=== PATIENT | female | born 1950 | race Caucasian/White ===

== ENCOUNTER → 2018-02-18 | Outpatient (CLI) | payer OTHER | LOC: CIMAGING 16:15 | PROVIDERS: ATTEND Family Medicine | DX: R91.8 Other nonspecific abnormal finding of lung field (principal) | CPT/HCPCS: 71046-PO ==

== ENCOUNTER → 2018-02-24 | Day surgery (SDC) | payer OTHER ==
[~2018-02-24] MED LIST: FLUMAZENIL 0.5 MG/5 ML MDV IVP PRN; MEPERIDINE 25 MG/ML SYR IVP PRN; MIDAZOLAM 2 MG/2 ML VIAL IVP PRN; NALOXONE HCL 0.4 MG/ML INJ IVP PRN; NS 1,000 ML IV SCH; fentaNYL 100 MCG/2 ML INJ IVP PRN
--- NOTE | 2018-02-24 14:10 | PDGENHP ---
History & Physical Chief Complaint: pulmonary masses of unknown origin History of Present Illness: pulmonary masses of unknown origin Pertinent Past, Social, Family History: HTN, DM, ulcerative colitis Relevant Physical Exam: rrr Cardiorespiratory Assessment: Diminished breath sounds. No wheeze or rhonchi
--- NOTE | 2018-02-24 14:10 | PDPROPOC ---
Sedation Plan of Care Sedation Plan of Care: vital signs stable, mental status noted, patient educated of risks, benefits, alternatives, patient can tolerate sedation ASA Classification: ASA 2 Planned drugs: fentanyl, midazolam Mallampati Score: Class 3 Mallampati Reference Image: Patient passed 3-3-2 rule?: Yes
--- NOTE | 2018-02-24 15:15 | PDHOMEO2F ---
Home Oxygen Face to Face Home Orders: I certify that a physician or a nurse practitioner or physician's certified ophthalmic surgical assistant has had a [id number] encounter with this patient on the date of this order due to the diagnosis listed, which relates to the primary reason the patient requires home oxygen. Alternative treatments have been tried, or considered, and deemed ineffective. It is anticipated that supplemental oxygen will result in improvement with treatment. Home oxygen qualifying diagnosis: metastatic carcinom a SpO2 on room air (%): 85 Frequency of home oxygen needed: continuous Home oxygen liters per minute: 3 Home oxygen delivery device: nasal cannula Concentrator: Yes E-tanks for mobility and back up: Yes If ordering portable O2, is the patient mobile in the home?: Yes I certify that, based on these findings, the home oxygen is medically necessary for this patient for the following length of time. Length of time home oxygen needed: 99 years
[2018-02-24 17:59] VITALS: BP 117/74
== END | disposition home or self-care (01) ==
LOC: FIMAGING 10:16
PROVIDERS: ATTEND Internal Medicine Hematology & Oncology
PROC: 0HB5XZX Excision of Chest Skin, External Approach, Diagnostic (ICD-10-PCS; 2018-02-24)
PROC: 0BBC3ZX Excision of Right Upper Lung Lobe, Percutaneous Approach, Diagnostic (ICD-10-PCS; principal; 2018-02-24 13:52)
DX: C34.11 Malignant neoplasm of upper lobe, right bronchus or lung (principal); C49.3 Malignant neoplasm of connective and soft tissue of thorax; I10 Essential (primary) hypertension; E11.9 Type 2 diabetes mellitus without complications; K51.90 Ulcerative colitis, unspecified, without complications
CPT/HCPCS: J2250; J3010

== ENCOUNTER 2018-03-14 05:30 | Day surgery (SDC) | payer OTHER ==
[2018-03-14] MEDS ORDERED: ceFAZolin 2 GM/DEXTROSE 100 ML IV ONE (06:05)
[2018-03-14] MEDS ORDERED: LR 1,000 ML IV ONE (06:06)
[2018-03-14] MEDS ORDERED: BUPIVACAINE 0.5% 30 ML SDV ONE (06:43)
--- NOTE | 2018-03-14 07:01 | PDANEPAE ---
ANE Past Medical History - Cardiovascular History Hx Hypertension: Yes Hx Arrhythmias: No Hx Chest Pain: No Hx Coronary Artery / Peripheral Vascular Disease: No Hx CHF / Valvular Disease: No Hx Palpitations: No Cardiovascular History Comment: heart murmur, per Dr. Stokse w/ONC - Pulmonary History Hx COPD: No Hx Asthma/Reactive Airway Disease: No Hx Recent Upper Respiratory Infection: No Hx Oxygen in Use at Home: Yes O2 in Use at Home (L/minute): 3L continuously Hx Sleep Apnea: No Sleep Apnea Screening Result - Last Documented: Positive Pulmonary History Comment: ZAID triggers only - Neurologic History Hx Cerebrovascular Accident: No Hx Seizures: No Hx Dementia: No - Endocrine History Hx Diabetes: Yes - Renal History Hx Renal Disorders: No - Liver History Hx Hepatic Disorders: No - Neurological & Psychiatric Hx Hx Neurological and Psychiatric Disorders: No - Cancer History Hx Cancer: No Cancer History Comment: Bilat lung nodules. Uterine sarcoma - Congenital Disorder History Hx Congenital Disorders: No - GI History Hx Gastrointestinal Disorders: Yes Gastrointestinal History Comment: ulcerative colitis - Other Health History Other Health History: degenerative arthritis. sees chiropractor for back alignment. glasses for reading. dentures, full set - Chronic Pain History Chronic Pain: No - Surgical History Prior Surgeries: d&c 1969's. tonsillectomy ANE Review of Systems Review of Systems: - Exercise capacity METS (RN): 3 METS ANE Patient History - Allergies Allergies/Adverse Reactions: No Known Allergies Allergy (Unverified 02/21/18 15:10) - Home Medications Home Medications: Atenolol 02/21/18 [Last Taken 03/13/18] Glipizide 02/21/18 [Last Taken 03/10/18] Lisinopril/Hctz 20/12.5MG 02/21/18 [Last Taken 03/12/18] Metformin 1000 mg 02/21/18 [Last Taken 03/13/18] Multivitamins 02/21/18 [Last Taken 03/13/18] Allen 3 500 Softgel 02/21/18 [Last Taken 03/13/18] Viactiv Soft Chew 02/21/18 [Last Taken 03/13/18] - NPO status NPO Since - Liquids (Date): 03/14/18 NPO Since - Liquids (Time): 04:15 NPO Since - Solids (Date): 03/13/18 NPO Since - Solids (Time): 20:30 - Smoking Hx Smoking Status: Never smoked - Family Anes Hx Family Hx Anesthesia Complications: none ANE Labs/Vital Signs - Vital Signs Blood Pressure: 133/69 Heart Rate: 89 Respiratory Rate: 18 O2 Sat (%): 96 Height: 162.56 cm Weight: 113.398 kg ANE Physical Exam - Airway Mallampati Score: Class 2 Mouth exam: dentures - ASA Status ASA Status: III ANE Anesthesia Plan Anesthesia Plan: GA w LMA
[2018-03-14] MEDS ORDERED: PROPOFOL 200 MG/20 ML VIAL ONE (07:07)
[2018-03-14] MEDS ORDERED: MIDAZOLAM 2 MG/2 ML VIAL ONE (07:07)
[2018-03-14] MEDS ORDERED: fentaNYL 100 MCG/2 ML INJ ONE (07:07)
[2018-03-14] MEDS ORDERED: METOCLOPRAMIDE 10 MG/2 ML VIAL ONE (07:08)
[2018-03-14] MEDS ORDERED: ONDANSETRON 4 MG/2 ML VIAL ONE (07:08)
[2018-03-14] MEDS ORDERED: LIDOCAINE 2% JELLY 5 ML TUBE ONE (07:08)
--- NOTE | 2018-03-14 07:08 | PDHPUP ---
History & Physical Update H&P update statement: This history and physical update is based on an assessment of the patient which was completed after admission or registration (within 24 hours), but prior to the surgery/procedure. H&P update: H&P reviewed & patient examined, no change in patient's condition since H&P completed
--- NOTE | 2018-03-14 08:04 | POSTOPPROG ---
Post Op Note Date of Operation: 03/14/18 Surgeon: Shiar Nicolas Anesthesiologist: alfie Anesthesia: GET(General Endotracheal) Pre-op Diagnosis: uterine sarcoma Post-op Diagnosis: same Indication: 68 yo with uterine sarcoma Procedure: R US IJ port Findings: tip SVC RA junction Inf/Abcess present in the surg proc area at time of surgery?: No EBL: Minimal Specimen(s): none
[2018-03-14] MEDS ORDERED: fentaNYL 100 MCG/2 ML INJ IVP PRN (08:09)
[2018-03-14] MEDS ORDERED: NALOXONE HCL 0.4 MG/ML INJ IVP PRN (08:09)
[2018-03-14] MEDS ORDERED: LR 500 ML IV PRN (08:09)
--- NOTE | 2018-03-14 08:10 | POSTANESTH ---
Post Anesthetic Evaluation Cardiovascular Status: Similar to Pre-Op Cond Respiratory Status: Similar to Pre-op Cond. Level of Consciousness/Mental Status: Can Participate in Eval Pain Control: Adequate, Prn Tx Ordered Nausea/Vomiting Control: Adequate, Prn Tx Ordered Complications Possibly Related to Anesthesia: None Noted
--- NOTE | 2018-03-14 08:21 | GOP ---
DATE OF OPERATION: 03/14/2018 SURGEON: Shira Nicolas MD ANESTHESIA: General. ANESTHESIOLOGIST: Tim Wayne MD. PREOPERATIVE DIAGNOSIS: Uterine sarcoma. POSTOPERATIVE DIAGNOSIS: Uterine sarcoma. PROCEDURE PERFORMED: Right ultrasound-guided internal jugular PowerPort placement. FINDINGS: Tip at the SVC-RA junction. SPECIMENS: None. ESTIMATED BLOOD LOSS: 5 cc. INDICATIONS: The patient is a 68-year-old woman with uterine sarcoma. She requires a port for chemo therapy. DESCRIPTION OF PROCEDURE: Patient was brought into the operating room, placed supine on the table, a nd general anesthesia was administered. Her bilateral neck and chest were prepped and draped in the usual sterile fashion. I infiltrated all sites with 0.5% Marcaine prior to making incision. I acces sed her right internal jugular vein which was compressible by ultrasound with a large-bore needle wit h dark return of blood flow on the first attempt. I threaded a wire through the needle. Initially w as crossing through the innominate and then under fluoroscopy, I was able to direct it to the inferio r vena cava. I then created a pocket to accommodate the port in the right chest. I tunneled the por t up to the insertion site. Using the Seldinger technique, I placed a dilator and sheath over the wi re. I removed the wire and dilator. I threaded the catheter through the sheath and peeled away the sheath. I performed manipulation of the neck to create a soft gentle curve of the catheter. Placeme nt was confirmed at the SVC-RA junction. The port withdrew blood easily and was flushed with heparin . The pocket was closed with 3-0 Vicryl followed by 4-0 Monocryl. Dermabond applied. She was awake brina in the operating room, extubated, transferred to PACU in stable condition. A chest x-ray was pen ding. /[id number]/MODL
[2018-03-14 09:47] VITALS: BP 123/69
== END 2018-03-14 10:00 | disposition home or self-care (01) ==
LOC: FSGY 05:30
PROVIDERS: ATTEND Surgery
PROC: 0JH60XZ Insertion of Tunneled Vascular Access Device into Chest Subcutaneous Tissue and Fascia, Open Approach (ICD-10-PCS; principal; 2018-03-14 07:15)
PROC: 02HV33Z Insertion of Infusion Device into Superior Vena Cava, Percutaneous Approach (ICD-10-PCS; principal; 2018-03-14 07:15)
DX: Z45.2 Encounter for adjustment and management of vascular access device (principal); C55 Malignant neoplasm of uterus, part unspecified; I10 Essential (primary) hypertension; G47.33 Obstructive sleep apnea (adult) (pediatric); E11.9 Type 2 diabetes mellitus without complications
CPT/HCPCS: C1788; J0690; J1642; J2250; J2405; J2704; J2765; J3010

== ENCOUNTER → 2018-06-18 | Outpatient (CLI) | payer OTHER | END | disposition home or self-care (01) | LOC: FIMAGING 09:59 | PROVIDERS: ATTEND Specialist | DX: N20.1 Calculus of ureter (principal) ==

== ENCOUNTER 2018-06-20 15:11 | Inpatient (IN) | payer OTHER ==
[2018-06-20] MEDS ORDERED: ONDANSETRON 4 MG/2 ML VIAL IVP PRN (15:21)
[2018-06-20] MEDS ORDERED: HYDROCODONE/APAP 5/325 TAB PO PRN (15:21)
[2018-06-20] MEDS ORDERED: ONDANSETRON DISINTEGRATING 4 MG TAB PO PRN (15:21)
[2018-06-20] MEDS ORDERED: ACETAMINOPHEN 325 MG TAB PO PRN (15:21)
[2018-06-20] MEDS ORDERED: LORazepam 0.5 MG TAB PO PRN (15:21)
[2018-06-20] MEDS ORDERED: NS W/ 20 KCl/L 1,000 ML IV SCH (15:30)
--- NOTE | 2018-06-20 16:16 | PDCONSULT ---
Lockstitch Sleeve Maker Note: Hematology/Oncology Consult Note Requesting provider: Dr Hillman Outpatient oncologist: Dr. 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 She is well known to our practice and is followed by my partner Dr. Beau Stokes. She initially presented in January with bilateral pulmonary nodules. She had a CT chest and pelvis that demonstrated large uterine mass. She had biopsy along the demonstrated poorly differentiated sarcoma. She was initiated on doxorubicin and olara on 2017. She has received a total of 5 cycles. Her last dose was on 06/11/2018. Over the course the last 2 weeks she has had significant dyspnea on exertion. She has also had decreased p.o. Intake alongside profound diarrhea. She denies any blood in the stool. She did have a workup in clinic including stool studies that were negative. She has received IV hydration daily for the last 3 days within our clinic. Today she presented with significant neutropenia with a white blood cell count 0.27. She did receive growth factor in the clinic. She was admitted directly from clinic for further evaluation of diarrhea and shortness of breath. Past medical history: Metastatic sarcoma as per above Diabetes mellitus Hypertension Inflammatory bowel disease Osteoarthritis Family history: Mother had congestive heart failure. Father had diabetes. 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 She denies any alcohol or tobacco. Allergies: No known drug allergies Medications: Reviewed outpatient medications Review of systems: 12 point review of system was obtained is otherwise negative Physical examination: Vitals reviewed General: Pleasant, conversant, NAD, mild respiratory distress HEENT: Dry mucus membrane, crusted lesion on lips, OP otherwise clear, EOMI CV: Tachycardia, 2/6 systolic murmur appreciated throughout Pulm: Mild respiratory distress noted Abdomen: soft, bs +, slight tenderness in the RUQ Ext: 1+ LE edema, no cyanosis or clubbing Skin: No other skin lesions Psych: Appropriate affect Neuro: Moving all ext Labs: Pending on admission. A/P: This is a 68-year-old female with history of metastatic sarcoma thought to be of uterine primary currently receiving doxorubicin and olaratumab admitted for diarrhea, weakness and neutropenia. 1. Diarrhea, nausea, vomiting: She does have history of inflammatory bowel disease. Her stool studies done in clinic were negative. She denies any blood in her stool. She could certainly have diarrhea secondary to the Olaratumab as well. I would recommend deferring any endoscopy internal her neutropenia resolved. I recommend continued IV fluid for time being. I would also initiate Zofran scheduled. 2. Neutropenia: She denies any fevers. She did receive growth factor in the clinic which we will continue to expedite her hospital discharge. If she develops a fever, I would recommend starting broad spectrum antibiotics with Vanc/Cefepime. 3. Thrombocytopenia: This is secondary to chemotherapy. 4. Dyspnea: She reports baseline oxygen use but in the last 2 weeks her dyspnea has worsened. This could be secondary to anemia as well as pulmonary metastasis. Although, it does appear her disease is responding to treatment. I recommend obtaining had two view chest x-ray at the orders of which I have placed. 5. Metastatic uterine sarcoma: Her current treatment plan will be on hold until she sees Dr. Stokes in the clinic.
[2018-06-20] MEDS ORDERED: NS 1,000 ML IV ONE (16:50)
[2018-06-20] MEDS ORDERED: POTASSIUM CL 10 MEQ TAB PO SCH (17:00)
[2018-06-20] MEDS ORDERED: NS 2,000 ML IV ONE (17:06)
[2018-06-20 17:52] LABS: INR 1.25 (0.83-1.16); PROTIME(PATIENT) 15.9 SEC (12.0-15.0)
[2018-06-20 18:00] LABS: PLATELET COUNT 39 10^3/uL (150-400)
[2018-06-20] MEDS: VANCOMYCIN 1.5 GM in NS 250 ML IV ONE ×2 (18:12→18:56)
[2018-06-20] MEDS: CEFEPIME HCL 2 GM in NS 100 ML IV SCH (18:17)
[2018-06-20] MEDS ORDERED: D50W 25 GM/50 ML VIAL IVP PRN (20:58)
[2018-06-20] MEDS: POTASSIUM Cl (KCl) 100 ML IV SCH (21:18)
--- NOTE | 2018-06-20 21:47 | GHP ---
DATE OF ADMISSION: 06/20/2018 CHIEF COMPLAINT: Nonbloody diarrhea. HISTORY OF PRESENT ILLNESS: Ms. Anaya is a pleasant, 68-year-old female with a recent diagnosis of m etastatic uterine sarcoma who has been undergoing chemotherapy. Due to electrolyte abnormalities and dehydration related to diarrhea, she has been receiving IV fluids in the outpatient setting over the past few days, but unfortunately has continued to decline. She had a chest x-ray performed in [facility] and a STAT Team was called secondary to brief loss of consciousness. Her blood pressure was linda sured at 82/46. She states she has been having loose stools, which have been nonbloody in nature for the past several days. She does have a history of inflammatory bowel disease, but again, no bloody stools noted. Upon arrival back up on the floor, she developed a fever to 101.5. Blood cultures wer e taken and empiric antibiotic started. PAST MEDICAL HISTORY: Metastatic uterine sarcoma diagnosed in 2018, hypertension, chronic hypoxic re spiratory failure on 2 L of oxygen chronically, diabetes mellitus type 2, inflammatory bowel disease. PAST SURGICAL HISTORY: Recent CT-guided lung biopsy. MEDICATIONS: Glipizide 10 mg daily; metformin 1000 mg twice a day. ALLERGIES: No known drug allergies. FAMILY HISTORY: Father with a history of diabetes mellitus type 2. Mother with history of congestiv e heart failure. SOCIAL HISTORY: Patient is a nonsmoker. She is currently . Her power of claim attorney would be h er , who is present at the bedside today. CODE STATUS: Reviewed, and she is a full code status. REVIEW OF SYSTEMS: CONSTITUTIONAL: Positive for chills. ENT: No complaints of any nasal congestio n or localizing sinus pain. CARDIOVASCULAR: No complaints of any chest pain, palpitations, or synco pal episodes. RESPIRATORY: No complaints of productive cough or shortness of breath. GI: Positive for nausea and poor appetite with nonbloody loose stools. No localizing abdominal pain. : No re ports of any difficulty with urination or burning with urination or cloudy urine. NEUROLOGIC: No co mplaints of any headaches or focal weakness. HEMATOLOGIC: No history of any deep vein thrombosis or pulmonary embolism. PSYCHIATRIC: No history of anxiety or depression. ENDOCRINE: No polyuria or heat intolerance. SKIN: No new skin rashes noted. MUSCULOSKELETAL: No focal joint pains. PHYSICAL EXAM: VITAL SIGNS: Temperature 101.5, blood pressure 82/46, heart rate ranging between 105 and 120, respiratory rate of 18. GENERAL: The patient was having rigors at the time of the evaluat ion, but was awake, alert, and conversant. HEENT: Extraocular movements appear intact. No scleral icterus noted. NECK: Supple. No thyroid enlargement appreciated. CHEST: Clear to auscultation wi th normal respiratory effort. HEART: Regular rate and rhythm. No murmurs appreciated. ABDOMEN: S lightly hyperactive bowel sounds. Nontender, nondistended. : No Franklin catheter in place. EXTREM ITIES: No significant pitting edema. NEUROLOGIC: Cranial nerves 2-12 appear grossly intact with 5/ 5 strength in the extremities. LABS: White blood cell count 0.27, hemoglobin 7.6, platelets 26. Sodium 126, potassium 3.0, chlorid e 94, bicarb 24, BUN 5, creatinine 0.5, glucose of 181. Lactic acid 2.4. AST 19, ALT 13, alkaline p hosphatase 145, bilirubin is 0.8. IMAGING: Chest x-ray did not show any acute process. ASSESSMENT AND PLAN: 1. Septic shock: She does meet criteria for systemic inflammatory response syndrome based upon tach ycardia, hypotension, and fever. Thus far, her blood pressures have been responsive to IV fluids. S he has received a total of 3 L bolus of normal saline and will continue with maintenance IV fluids. 2. Neutropenic fever: Blood cultures have been obtained. Empiric coverage has been started with ce fepime and vancomycin. We will also obtain a urinalysis. 3. Hyponatremia: Likely related to hypovolemia. Trend with IV fluids. 4. Hypokalemia: This did improve upon recheck to 4.2, so I have taken out the potassium in her main tenance IV. 5. Pancytopenia with neutropenia: Growth factor has been given in her oncologist's office. This is all secondary to recent chemotherapy. 6. Metastatic uterine sarcoma: The patient has ongoing chemotherapy. 7. Hypertension: Hold antihypertensives at this time in light of hypotension. 8. Chronic hypoxic respiratory failure: The patient states she is on a baseline of 2 L, which was s tarted earlier this year. 9. Diabetes mellitus type 2: We will treat with sliding scale for now. 10. Inflammatory bowel disease. The patient states this has been in remission for many years. 11. Deep venous thrombosis prophylaxis: Will hold heparin or Lovenox for now. DISPOSITION: Admit under inpatient status. /[id number]/MODL
[2018-06-20] MEDS ORDERED: CEFEPIME HCL 2 GM in NS 100 ML IV SCH (22:00)
[2018-06-20] MEDS: NS 1,000 ML IV SCH (22:01)
[2018-06-20] MEDS ORDERED: NS 500 ML IV ONE (23:23)
[2018-06-21] MEDS: CEFEPIME HCL 2 GM in NS 100 ML IV SCH ×4 (02:17→22:58)
[2018-06-21] MEDS ORDERED: NS 500 ML IV ONE ×2 (03:34→06:05)
[2018-06-21] MEDS ORDERED: POTASSIUM CL 20 MEQ TAB PO ONE (05:02)
[2018-06-21 05:08] LABS: PLATELET COUNT 17 10^3/uL (150-400)
[2018-06-21] MEDS: POTASSIUM Cl (KCl) 100 ML IV SCH ×2 (05:16→06:41)
--- NOTE | 2018-06-21 06:41 | PDMN ---
Medical Necessity Medical necessity: Change to inpt as of 06/20/18 @ 00:38. Pt meets inpt criteria per MD order and MCG M-160, Sepsis and Other Febrile Illness, without Focal Infection, A-3 days. 68 y/o w/recent diagnosis of uterine sarcoma undergoing chemo and due to diarrhea/dehydration/electrolyte abnormalities has been receiving IVF in outpt setting for past couple days but has continued to decline, admitted now w/septic shock meeting SIRS as evidenced by tachycardia, hypotension, VBG lactic acid of 2.9, and fever, significant neutropenia w/WBC ct of 0.20, signif electrolyte findings this AM w/K 2.4, Na 128, Mg 1.0, Plt ct of 17. Est LOS>2MN for ongoing management of above.
[2018-06-21] MEDS ORDERED: MAGNESIUM SULF 2 GM/WATER 50 ML IV ONE (07:08)
[2018-06-21] MEDS: INSULIN REGULAR HUMAN 100 UNIT/ML UNIT SC SCH ×3 (08:53→19:09)
[2018-06-21] MEDS ORDERED: ENOXAPARIN 40 MG/0.4 ML SYR SC SCH (09:00)
[2018-06-21] MEDS ORDERED: FILGRASTIM-SNDZ 480 MCG/0.8 ML SYR SC SCH (14:00)
[2018-06-21] MEDS ORDERED: IOPAMIDOL (ISOVUE-300) 100 ML BTL ONE (15:14)
--- NOTE | 2018-06-21 15:23 | SOAPPROG ---
SOAP Progress Note Assessment/Plan: E&M for Sarcoma * Profound neutropenia with associated diarrhea and nausea and vomiting: She is at high risk of developing an infection. She is on a broad-spectrum antibiotics primarily cefepime and she was also started on Zarxio. Her cultures remain negative. Vancomycin was stopped. With her history of ulcerative colitis and a low white count, I agree with getting a CT scan to make sure she does not have any evidence of typhlitis but clinically she does not appear to. * Severe pancytopenia due to chemotherapy: Agree with transfusing a unit of blood today but there is no need for a platelet transfusion today. She still severely neutropenic so we will continue G-CSF. * Metastatic uterine sarcoma: She is day 11 of cycle 5 of doxorubicin plus Olaratumab. Dr. Stokes was considering not going forward with any further doxorubicin after this cycle because she was at or near her lifetime recommended dose. * Dyspnea: The chest x-ray shows improvement of the metastases and no acute changes. This may be due to the anemia. Subjective: She is still fatigued but not having any new complaints. Her mouth is sore. The diarrhea is better and she is scheduled for a CT scan today. She denies significant abdominal pain. Objective: Vital Signs Temp Pulse Resp BP Pulse Ox 36.4 C 85 12 94/50 L 96 06/21/18 12:04 06/21/18 12:04 06/21/18 12:04 06/21/18 12:04 06/21/18 12:04 Laboratory Results 06/21/18 04:15 06/21/18 11:49 06/20/18 06/21/18 06/22/18 05:59 05:59 05:59 Intake Total 3100 1500 Output Total 75 Balance 3025 1500 PT 15.9 SEC (12.0-15.0) H 06/20/18 17:23 INR 1.25 (0.83-1.16) H 06/20/18 17:23 Laboratory Tests 06/20/18 06/21/18 17:23 04:15 WBC 0.33 L* 0.20 L* Hgb 8.3 L 6.1 L Plt Count 39 L 17 L* Absolute Seg Neuts 0.03 L 0.03 L Physical Exam - Physical Exam General Appearance: no apparent distress EENT: other (Some minimal mucositis but no thrush.) Respiratory: lungs clear Cardiac/Chest: regular rate, rhythm, edema, systolic murmur Abdomen: non-tender, soft, distended ICD10 Worksheet Patient Problems: Problems Problem Status Onset Diarrhea Acute Anemia due to chemotherapy Acute Thrombocytopenia due to drugs Acute ~06/20/18 Neutropenia, drug-induced Acute ~06/20/18 Uterine sarcoma Chronic ~02/18/18
[2018-06-21] MEDS ORDERED: LIDOCAINE 2% VISCOUS 15 ML UDCUP PO PRN (15:50)
--- NOTE | 2018-06-21 16:23 | ASMTCMCOM ---
CM Note CM Note Notes: Spoke with RN and reviewed chart. Pt admitted for dehydration, diarrhea, electrolyte imbalance and weakness in the setting of chemotherapy for uterine sarcoma. Pt lives independently in mobile home with and has supportive family. Pt to receive a unit of blood today. OT has been ordered and not yet evaluated. Discharge needs TBD. CM to follow. D/C Plan: TBD Date Signed: 06/21/2018 04:22 PM Electronically Signed By:Ashlyn Marsh
--- NOTE | 2018-06-21 16:36 | HOSPPROG ---
Hospitalist Progress Note Assessment/Plan: Subjective Follow-up on septic shock and neutropenic fever. Patient states that she is still feeling quite fatigued today but not having the chills and rigors as she was yesterday. Overnight her blood pressures have been running low but she appears to be responding to IV fluids at this time. No new complaints or localizing pains or skin rashes. Objective Vital signs as detailed below Exam General-awake alert conversant no acute distress Heart-regular rate and rhythm no murmurs Lungs-Clear to auscultation with normal respiratory effort Abdomen-soft nontender nondistended normal bowel sounds -no Franklin catheter in place Extremities-1+ pitting edema bilateral lower extremities Skin-no concerning skin rashes noted Labs as detailed below Assessment and plan Septic shock-patient has been responsive to IV fluids. If she becomes unresponsive she would may need to be transferred to step-down unit or ICU for vasopressors. Neutropenic fever-continue empiric antibiotic coverage with cefepime and vancomycin. Further recommendations per Infectious Disease. Neutropenic precautions in place. Hypokalemia-likely related to diarrhea. Potassium improved from 2.4-3.1 today. Adjust potassium supplementation to twice a day. Hyponatremia-suspect hypovolemia related considering diarrhea. Improved from 128-129 today. Continue to trend with IV fluids. Diarrhea-negative PCR panel. Likely related to chemotherapy. Pancytopenia-again likely related to chemotherapy. Patient did receive granulocyte stimulating factor with her oncologist. For hemoglobin of 6.1 today 1 unit of blood as has been ordered. Metastatic uterine sarcoma-treatment per Oncology. Hypertension-holding any antihypertensives at this time. Chronic hypoxic respiratory failure-patient is on 2 L chronically. This is related to metastases in her lungs. Diabetes mellitus type 2-continue treatment with sliding scale insulin. Inflammatory bowel disease-history of. No bloody stools. DVT prophylaxis-no heparin or Lovenox [place] [id number]. Disposition-patient is needing ongoing hospitalization for close monitoring. Objective: Vital Signs Temp Pulse Resp BP Pulse Ox 36.4 C 85 12 94/50 L 96 06/21/18 12:04 06/21/18 12:04 06/21/18 12:04 06/21/18 12:04 06/21/18 12:04 Laboratory Results 06/21/18 04:15 06/21/18 11:49 06/20/18 06/21/18 06/22/18 05:59 05:59 05:59 Intake Total 3100 1500 Output Total 75 200 Balance 3025 1300 PT 15.9 SEC (12.0-15.0) H 06/20/18 17:23 INR 1.25 (0.83-1.16) H 06/20/18 17:23 ICD10 Worksheet Patient Problems: Problems Problem Status Onset Anemia due to chemotherapy Acute Diarrhea Acute Neutropenia, drug-induced Acute ~06/20/18 Thrombocytopenia due to drugs Acute ~06/20/18 Uterine sarcoma Chronic ~02/18/18
[2018-06-21] MEDS ORDERED: VANCOMYCIN HCL/NORMAL SALINE 250 ML IV SCH (17:30)
[2018-06-21] MEDS: POTASSIUM CL 10 MEQ TAB PO SCH (21:36)
[2018-06-21] MEDS: VANCOMYCIN HCL/NORMAL SALINE 250 ML IV SCH (21:36)
[2018-06-22] MEDS: CEFEPIME HCL 2 GM in NS 100 ML IV SCH ×3 (04:10→19:57)
[2018-06-22 04:41] LABS: PLATELET COUNT 31 10^3/uL (150-400)
--- NOTE | 2018-06-22 06:18 | CPEKG ---
Test Reason : OPEN Blood Pressure : / mmHG Vent. Rate : 122 BPM Atrial Rate : 122 BPM P-R Int : 111 ms QRS Dur : 077 ms QT Int : 378 ms P-R-T Axes : 057 052 208 degrees QTc Int : 539 ms Sinus tachycardia Low voltage, precordial leads Confirmed by Gustavo Narayan ([id number]) on 06/22/2018 6:18:11 AM Referred By: Confirmed By:Gustavo Narayan
[2018-06-22] MEDS: VANCOMYCIN HCL/NORMAL SALINE 250 ML IV SCH ×2 (08:34→21:00)
[2018-06-22] MEDS: POTASSIUM CL 10 MEQ TAB PO SCH ×2 (08:34→21:50)
[2018-06-22] MEDS ORDERED: POTASSIUM CL 10 MEQ TAB PO SCH (09:00)
[2018-06-22] MEDS: INSULIN REGULAR HUMAN 100 UNIT/ML UNIT SC SCH ×3 (09:55→18:31)
--- NOTE | 2018-06-22 10:45 | GCON ---
INFECTIOUS DISEASE CONSULTATION DATE OF CONSULTATION: 06/21/2018 REFERRING PHYSICIAN: Isael Hillman MD REASON FOR CONSULTATION: Neutropenic fever. 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 The patient has been receiving chemotherapy with doxorubicin and Olara. Last dose was received on 06/11/2018. The patient describes having 10 days of significant diarrhea. She describes having 5-7 episodes per day. This is not associated with blood or mucus. She does not have associated abdominal pain or cramps. Over the last 1-2 days, she developed fever and shaking chills. Yesterday, she was noted to be neutropenic with the above complaints prompting her admission. On 06/18/2018, she did undergo stool pathogen panel by PCR, which showed no organisms. She has not been on any antibiotics recently. She does describe having previous episodes of neutropenia with chemotherapy. There is no recent travel. There are no animal exposures. No ill contacts. She does not have any urinary symptoms. There is no cough, but she does complain of shortness of breath. There is no sore throat. She does complain of oral ulcerations. She was empirically started on vancomycin and cefepime. She does have an indwelling port without redness or tenderness. Given the above findings , I am now asked to assist in her ongoing management. 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 PAST SURGICAL HISTORY: Port placement. CURRENT MEDICATIONS: Vancomycin 1.5 g IV x1 with subsequent order for pharmacy to dose, cefepime 2 g IV 8 hours, filgrastim 480 mcg subcu daily, insulin sliding scale, potassium chloride 40 mEq p.o. daily. ALLERGIES: No known drug allergies. SOCIAL HISTORY: Patient does not smoke, drink alcohol or use drugs. No recent travel or animal exposure. FAMILY HISTORY: Diabetes mellitus. REVIEW OF SYSTEMS: Outside that noted in the HPI, the remainder of a 10-system review is unremarkable. PHYSICAL EXAMINATION: VITAL SIGNS: Temperature maximum 38.7, temperature current 36.4, heart rate 85, respiratory rate 12, blood pressure 94/50, oxygen saturation 96% on 3 L. GENERAL: The patient is chronically ill appearing, in no acute distress. She appears nontoxic. HEENT: There is no scleral icterus, conjunctival injection, or conjunctival petechiae. Oropharynx shows ulcerations on the lips and intraorally. Mucous membranes are moist. There is no nasal discharge. There is no tenderness over the sinuses. NECK: Supple without palpable lymphadenopathy or thyromegaly. CHEST: Clear to auscultation bilaterally without adventitious sounds. Respiratory effort is normal. A port is present in the upper chest without erythema or drainage. CARDIOVASCULAR: Regular rate and rhythm without murmurs, gallops, or rubs. ABDOMEN: Soft, nontender, nondistended. Bowel sounds are hypoactive. No palpable organomegaly. MUSCULOSKELETAL: There is 1+ lower extremity edema bilaterally. No cyanosis or clubbing. SKIN: No rashes noted. No stigmata of endocarditis. The skin is warm and dry to touch. NEUROLOGIC: The patient is alert and interacts appropriately with examiner. Cranial nerves 2-12 are grossly intact. Sensation is grossly intact. Muscle tone and bulk are normal. LYMPHATICS: No cervical or supraclavicular nodes noted. LABORATORY DATA: White blood cell count 0.2, hematocrit 18.4, platelets 17, neutrophils 14%. Serum creatinine is 0.5 (at time of admission 2.9), potassium 3.1, AST 14, ALT 21, alkaline phosphatase 82, bilirubin 0.4, albumin 3.3. Venous lactate is 1.0. INR is 1.3. Blood cultures x2 sets are pending. Two stool pathogen panel by PCR testing on 06/18/2018, is negative. Chest x-ray shows bilateral pulmonary nodules which are decreased in size versus prior with no other acute findings. Abdominal x-ray shows 2 distal right ureteral calculi which are unchanged in position, measuring 12 x 8 mm and 5 x 3.5 mm, respectively. IMPRESSION: Neutropenic fever: Primary symptomatology in addition to fever is ongoing diarrhea. Recent gastrointestinal pathogen panel is negative. In the setting of neutropenia, could potentially be related to neutropenic enterocolitis versus possibility of drug-induced. Based on her prior history of inflammatory bowel disease, this would also be a consideration but this has been quiescent for some time. The patient does have an indwelling port, which does not show any inflammatory findings what would be another potential etiology. In the setting of mucositis, oropharyngeal streptococci also of consideration. RECOMMENDATIONS: 1. Agree with empiric vancomycin and cefepime (will assess vancomycin random level given that renal function now normalized to determine if standing dose appropriate). 2. CT scan of abdomen and pelvis to assess for neutropenic enterocolitis. 3. Follow up blood cultures as available. 4. If evidence of neutropenic enterocolitis present on CT scan, would add metronidazole to cefepime for added anaerobic activity. 5. Await neutrophil recovery. Thank you for this consultation. We will continue to follow patient with you. /[id number]/MODL MTDD
--- NOTE | 2018-06-22 12:09 | SOAPPROG ---
[facility]A Progress Note Assessment/Plan: E&M for Sarcoma * Profound neutropenia with associated diarrhea and nausea and vomiting: She is at high risk of developing an infection and may have infectious colitis. She is on cefepime and Vanc. She is also started on Zarxio. Her cultures remain negative. * Colitis on CT: Infectious vs. underlying ulcerative colitis; she isn't as ill as expected to have with a typhlitis. * Severe pancytopenia due to chemotherapy: Hgb better after blood. WBC and ANC still low but much better. Platelets better. No need for transfusions today. Continue G-CSF. * Metastatic uterine sarcoma: She is day 12 of cycle 5 of doxorubicin plus Olaratumab. Dr. Stokes not going forward with further doxorubicin after this cycle because she was at or near her lifetime recommended dose. Subjective: Still with mouth soreness. Wasn't given salt/soda for rinses. Also still with diarrhea. Objective: Vital Signs Temp Pulse Resp BP Pulse Ox 36.3 C 107 H 16 113/72 99 06/22/18 08:00 06/22/18 08:00 06/22/18 08:00 06/22/18 08:00 06/22/18 08:00 Laboratory Results 06/22/18 04:21 06/22/18 04:28 06/21/18 06/22/18 06/23/18 05:59 05:59 05:59 Intake Total 3100 1500 Output Total 75 200 1 Balance 3025 1300 -1 PT 15.9 SEC (12.0-15.0) H 06/20/18 17:23 INR 1.25 (0.83-1.16) H 06/20/18 17:23 Laboratory Tests 06/21/18 06/22/18 04:15 04:21 WBC 0.20 L* 0.94 L* Hgb 6.1 L 8.2 L Plt Count 17 L* 31 L Absolute Seg Neuts 0.[address] Abd Pel W IV Contrast ___ CT Scan of the Abdomen and Pelvis (With Contrast) 1613 hours Impression: 1. Progression of moderate thickening associated with the proximal transverse colon through the rectum compatible with progression of colitis. 2. Stable to minimal decrease in visible bibasilar pulmonary nodules. 3. Slight decrease in smooth cystic mass anterior body of the pancreas. 4. Stable large mass in the pelvis that appears to be associated with the uterus. It is indeterminate if this represents sarcomatous degeneration associated with the uterus versus hematocolpos. 5. Residual calculus distal right ureter just above the UVJ without associated hydronephrosis. 6. Compression of the distal IVC and common iliac veins secondary to the pelvic mass. Dictated By: Luis Fernando Garzon MD Physical Exam - Physical Exam General Appearance: no apparent distress EENT: other (ulcers on inner lips and under tongue; no thrush) Respiratory: lungs clear Cardiac/Chest: tachycardia Abdomen: non-tender, soft ICD10 Worksheet Patient Problems: Problems Problem Status Onset Anemia due to chemotherapy Acute Diarrhea Acute Neutropenia, drug-induced Acute ~06/20/18 Thrombocytopenia due to drugs Acute ~06/20/18 Uterine sarcoma Chronic ~02/18/18
[2018-06-22] MEDS: FILGRASTIM-SNDZ 480 MCG/0.8 ML SYR SC SCH (13:09)
[2018-06-22] MEDS: NS 1,000 ML IV SCH (15:03)
--- NOTE | 2018-06-22 15:29 | HOSPPROG ---
Hospitalist Progress Note Assessment/Plan: Subjective Follow-up on septic shock and neutropenic fever. Patient states that she is feeling much better today. No subjective chills or rigors. Objective Vital signs as detailed below Exam General-awake alert conversant no acute distress, she appears more energetic today as compared to days prior and a little more talkative Heart-regular rate and rhythm no murmurs Lungs-Clear to auscultation with normal respiratory effort Abdomen-soft nontender nondistended normal bowel sounds -no Franklin catheter in place Extremities-1+ pitting edema bilateral lower extremities Skin-no concerning skin rashes noted Labs as detailed below Assessment and plan Septic shock-patient has been responsive to IV fluids. If she becomes unresponsive she would may need to be transferred to step-down unit or ICU for vasopressors. Neutropenic fever-continue empiric antibiotic coverage with cefepime and vancomycin. Further recommendations per Infectious Disease. Neutropenic precautions in place. Neutropenic enterocolitis-suspected. Continue antibiotic therapy per Infectious disease's recommendations. Edema-bilateral lower extremity. She does have some compression of the IVC on CT imaging which is probably playing a role in addition to the amount of IV fluids we have given her for volume resuscitation. Hypokalemia-likely related to diarrhea. Potassium slightly up to 3.2 today. Continue supplementation twice a day. Hyponatremia-suspect hypovolemia related considering diarrhea. Stable today at 1:29 a.m.. Continue to trend with IV fluids. Diarrhea-negative PCR panel. Likely related to chemotherapy. Pancytopenia-again likely related to chemotherapy. Patient did receive granulocyte stimulating factor with her oncologist. She was transfused 1 unit of blood yesterday as her hemoglobin was 6.1 this is much better today at 8. Metastatic uterine sarcoma-treatment per Oncology. Hypertension-holding any antihypertensives at this time. Chronic hypoxic respiratory failure-patient is on 2 L chronically. This is related to metastases in her lungs. Diabetes mellitus type 2-continue treatment with sliding scale insulin. Inflammatory bowel disease-history of. No bloody stools. DVT prophylaxis-no heparin or Lovenox in light of thrombocytopenia. Disposition-patient is needing ongoing hospitalization for close monitoring. Objective: Vital Signs Temp Pulse Resp BP Pulse Ox 36.4 C 96 12 108/70 99 06/22/18 12:16 06/22/18 12:16 06/22/18 12:16 06/22/18 12:16 06/22/18 12:16 Laboratory Results 06/22/18 04:21 06/22/18 04:28 06/21/18 06/22/18 06/23/18 05:59 05:59 05:59 Intake Total 3100 1500 Output Total 75 200 1 Balance 3025 1300 -1 PT 15.9 SEC (12.0-15.0) H 06/20/18 17:23 INR 1.25 (0.83-1.16) H 06/20/18 17:23 ICD10 Worksheet Patient Problems: Problems Problem Status Onset Anemia due to chemotherapy Acute Diarrhea Acute Neutropenia, drug-induced Acute ~06/20/18 Thrombocytopenia due to drugs Acute ~06/20/18 Uterine sarcoma Chronic ~02/18/18
--- NOTE | 2018-06-22 16:19 | ASMTCMCOM ---
CM Note CM Note Notes: Patient transferred to [facility], neutropenic precautions. CM to follow. Date Signed: 06/22/2018 04:18 PM Electronically Signed By:Charissa Wilson
--- NOTE | 2018-06-22 17:49 | PCMIDPN ---
Assessment/Plan: Assessment/Plan: * Neutropenic fever: No further fever. CT scan shows diffuse thickening of colon suggestive of neutropenic enterocolitis (less likely associated with known ulcerative colitis which has been quiescent). Atypical however not to have significant associated abdominal pain. Will add metronidazole to vancomycin and cefepime. If blood cultures remain negative tomorrow, will discontinue vancomycin. ANC improved to approximately 270 today. * Acute renal insufficiency: Resolved. * Diarrhea: Likely related to neutropenic enterocolitis versus element from ongoing chemotherapy. * Oral ulcerations: Patient with history of oral HSV. Will begin Valtrex 500 mg orally twice daily 06/22/18 17:46 Subjective: Overall patient feels better. Persistent diarrhea without abdominal pain. Objective: Vital Signs Temp Pulse Resp BP Pulse Ox 36.4 C 98 18 94/68 L 99 06/22/18 16:33 06/22/18 16:33 06/22/18 16:33 06/22/18 16:33 06/22/18 16:33 Laboratory Results 06/22/18 04:21 06/22/18 04:28 06/21/18 06/22/18 06/23/18 05:59 05:59 05:59 Intake Total 3100 1500 Output Total 75 200 1 Balance 3025 1300 -1 Vancomycin # 2 Cefepime # 2 ANC 270 Blood cultures x2 no growth CT scan of abdomen pelvis showing diffuse moderate thickening associated with the colon extending from the proximal transverse colon through the rectum - Physical Exam General Appearance: alert, no apparent distress EENT: other (Oral ulcerations over lips drying), No scleral icterus, No thrush Respiratory: lungs clear, other (Port nontender without erythema), No respiratory distress Cardiac/Chest: regular rate, rhythm Extremities: No inflammation Abdomen: non-tender, No distended Skin: No rash, No embolic lesions ICD10 Worksheet Patient Problems: Problems Problem Status Onset Anemia due to chemotherapy Acute Diarrhea Acute Neutropenia, drug-induced Acute ~06/20/18 Thrombocytopenia due to drugs Acute ~06/20/18 Uterine sarcoma Chronic ~02/18/18
[2018-06-22] MEDS: valACYclovir 500 MG TAB PO SCH (21:50)
[2018-06-23] MEDS: NS 1,000 ML IV SCH (05:46)
[2018-06-23] MEDS: CEFEPIME HCL 2 GM in NS 100 ML IV SCH ×3 (05:46→20:51)
[2018-06-23 06:41] LABS: PLATELET COUNT 47 10^3/uL (150-400)
[2018-06-23] MEDS: INSULIN REGULAR HUMAN 100 UNIT/ML UNIT SC SCH ×3 (07:54→17:50)
[2018-06-23] MEDS: POTASSIUM CL 10 MEQ TAB PO SCH ×2 (09:17→20:51)
[2018-06-23] MEDS: VANCOMYCIN HCL/NORMAL SALINE 250 ML IV SCH (09:17)
[2018-06-23] MEDS: valACYclovir 500 MG TAB PO SCH ×2 (09:17→20:50)
--- NOTE | 2018-06-23 09:26 | HOSPPROG ---
Hospitalist Progress Note Assessment/Plan: DIAGNOSES: * neutropenic fever * CT scan findings raise question of possible neutropenic colitis * acute sepsis with hypotension and lactic acidosis * pancytopenia from cancer and chemotherapy * acute hyponatremia and hypokalemia, multifactorial with GI fluid losses contributing * chemotherapy related diarrhea * bilateral leg edema, volume overload * oral ulcerations with prior history of HSV, suspect both acute HSV and drug- induced stomatitis * severe deconditioning weakness, acute gait instability related to that with chronic gait instability using walker at home * metastatic uterine sarcoma * type 2 diabetes mellitus * history of inflammatory bowel disease * chronic hypoxemic respiratory failure, with metastatic disease to lungs PLANS: * Vancomycin stopped with negative cultures at this time * Continue empiric antibiotics including bowel varun coverage * Follow blood cell counts closely * Follow sugars closely * Continue electrolyte replacement * Continue Valtrex * Mouth rinses for oral ulcers * Physical occupational therapy for strength and mobility balance issues * DVT prophylaxis is mechanical only due to thrombocytopenia at this time I examined the patient at the bedside today with Dr. 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: Exam: alert oriented HEENT shows diffuse oral ulcerations on lower lip and under surface of tongue, buccal mucosa skin warm dry color ok resps not labored lungs clear BSs heart regular abd soft nondistended nontender, bowel sounds present limbs warm, no edema iv site ok Lab data: White count increasing to 1629 neutrophils Platelets improved 47,000 anemia stable Sugars in good range Potassium at 3.4 Sodium still borderline Microbiology: Blood cultures remain negative at this time Objective: Vital Signs Temp Pulse Resp BP Pulse Ox 36.8 C 90 18 112/72 100 06/23/18 04:00 06/23/18 07:52 06/23/18 07:52 06/23/18 07:52 06/23/18 07:52 Laboratory Results 06/23/18 05:40 06/23/18 05:40 12/23/18 12/24/18 12/25/18 06:59 06:59 06:59 Intake Total 1500 1725 Output Total 200 901 Balance 1300 824 PT 15.9 SEC (12.0-15.0) H 06/20/18 17:23 INR 1.25 (0.83-1.16) H 06/20/18 17:23 - Time Spent With Patient Time Spent with Patient: greater than 35 minutes Time Spent with Patient: Greater than 35 minutes spent on this patients care, greater than 50% of time spent counseling, educating, and coordinating care regarding the above mentioned plan. ICD10 Worksheet Patient Problems: Problems Problem Status Onset Anemia due to chemotherapy Acute Diarrhea Acute Neutropenia, drug-induced Acute ~06/20/18 Thrombocytopenia due to drugs Acute ~06/20/18 Uterine sarcoma Chronic ~02/18/18
--- NOTE | 2018-06-23 09:42 | PCMIDPN ---
Assessment/Plan: Assessment: Neutropenic enterocolitis-patient is now no longer neutropenic. She appears to be making a good clinical recovery. She has an appetite and is eating breakfast which is a new positive event. Patient remains weak with ambulation and needs help with transfer to [facility]. Currently we have her on vancomycin, cefepime, Flagyl and valacyclovir. Patient will have vancomycin discontinued today given the blood cultures are negative from admission. The cefepime and Flagyl will cover the antral colitis issues. Options for discharge on oral antibiotic include Augmentin or fluoroquinolones. The Valtrex can continue orally. Plan: 1. Continue both cefepime and Flagyl as currently dosed. 2. Discontinue vancomycin. 3. Continue Valtrex as currently dosed. 4. Evaluate strength and coordination for potential discharge in the next few days. 06/23/18 09:39 Subjective: Patient is resting in her hospital bed. She is eating breakfast. She states that she feels improved from admission and also improved over the last 24-48 hours. Diarrhea is continuing although not increased. Objective: Vancomycin # 3 Cefepime # 3 Flagyl # 1 Valacyclovir # 3 Vital Signs Temp Pulse Resp BP Pulse Ox 36.8 C 90 18 112/72 100 06/23/18 04:00 06/23/18 07:52 06/23/18 07:52 06/23/18 07:52 06/23/18 07:52 Laboratory Results 06/23/18 05:40 06/23/18 05:40 06/22/18 06/23/18 06/24/18 05:59 05:59 05:59 Intake Total 1500 1725 Output Total 200 901 Balance 1300 824 - Physical Exam General Appearance: WD/WN, alert, no apparent distress, non-toxic Respiratory: lungs clear, normal breath sounds, No respiratory distress Cardiac/Chest: regular rate, rhythm, No tachycardia, No systolic murmur, No irregularly irregular Extremities: non-tender, normal inspection Abdomen: non-tender, soft, No mass Skin: normal color, warm/dry, No rash Neuro/Psych: alert, normal mood/affect, oriented x 3 ICD10 Worksheet Patient Problems: Problems Problem Status Onset Anemia due to chemotherapy Acute Diarrhea Acute Neutropenia, drug-induced Acute ~06/20/18 Thrombocytopenia due to drugs Acute ~06/20/18 Uterine sarcoma Chronic ~02/18/18
--- NOTE | 2018-06-23 13:59 | SOAPPROG ---
ELIZA Progress Note Assessment/Plan: Assessment: * Profound neutropenia now improving. Total WBC 2.8 today. * Thrombocytopenia - no transfusion needed today * Colitis on CT: Infectious vs. underlying ulcerative colitis. Her abdomen is soft today. Very little tenderness. * Severe pancytopenia due to chemotherapy: Hgb better after blood. WBC and ANC still low but much better. Platelets better. No need for transfusions today. Continue G-CSF. * Metastatic uterine sarcoma: She is day 13 of cycle 5 of doxorubicin plus Olaratumab. Dr. Stokes not going forward with further doxorubicin after this cycle because she was at or near her lifetime recommended dose. Plan: - Continue G-CSF for now. - Abx per ID - vancomycin d/c today - Work to mobilize patient - Doxorubicin to be dropped out of regimen, Olara to continue. Subjective: Feels OK but weak. Up in chair Objective: Vital Signs Temp Pulse Resp BP Pulse Ox 36.3 C 88 16 108/66 100 06/23/18 11:42 06/23/18 11:42 06/23/18 11:42 06/23/18 11:42 06/23/18 11:42 Laboratory Results 06/23/18 05:40 06/23/18 05:40 06/21/18 06/22/18 06/23/18 23:59 23:59 23:59 Intake Total 1500 1725 Output Total 200 901 Balance 1300 -901 1725 PT 15.9 SEC (12.0-15.0) H 06/20/18 17:23 INR 1.25 (0.83-1.16) H 06/20/18 17:23 Physical Exam - Physical Exam General Appearance: alert Respiratory: lungs clear, No crackles, No rales, No rhonchi Cardiac/Chest: edema (1+ peripheral edema) Abdomen: non-tender, soft Skin: pallor Neuro/Psych: oriented x 3 ICD10 Worksheet Patient Problems: Problems Problem Status Onset Anemia due to chemotherapy Acute Diarrhea Acute Neutropenia, drug-induced Acute ~06/20/18 Thrombocytopenia due to drugs Acute ~06/20/18 Uterine sarcoma Chronic ~02/18/18
[2018-06-23] MEDS: FILGRASTIM-SNDZ 480 MCG/0.8 ML SYR SC SCH (14:25)
[2018-06-24] MEDS: NS 1,000 ML IV SCH ×2 (01:11→16:14)
[2018-06-24] MEDS: CEFEPIME HCL 2 GM in NS 100 ML IV SCH ×3 (03:58→20:20)
--- NOTE | 2018-06-24 09:15 | HOSPPROG ---
Hospitalist Progress Note Assessment/Plan: DIAGNOSES: * neutropenic fever * CT scan findings raise question of possible neutropenic colitis * acute sepsis with hypotension and lactic acidosis * pancytopenia from cancer and chemotherapy * acute hyponatremia and hypokalemia, multifactorial with GI fluid losses contributing * chemotherapy related diarrhea * bilateral leg edema, volume overload * oral ulcerations with prior history of HSV, suspect both acute HSV and drug- induced stomatitis * severe deconditioning weakness, acute gait instability related to that with chronic gait instability using walker at home * metastatic uterine sarcoma * type 2 diabetes mellitus: Sugars remain in good range * history of inflammatory bowel disease * chronic hypoxemic respiratory failure, with metastatic disease to lungs PLANS: * Continue empiric antibiotics including bowel varun coverage * Follow blood cell counts closely (today's CBC currently pending) * Follow sugars closely * Continue electrolyte replacement as needed * Continue Valtrex * Mouth rinses for oral ulcers * Physical occupational therapy for strength and mobility balance issues * DVT prophylaxis is mechanical only due to thrombocytopenia at this time I reviewed care plan in detail today with Dr. Duc Patiño SUBJECTIVE: Some improvement in bowels in terms of stool consistency but still had 5 bowel movements overnight which kept her up through the night Mild nausea but no vomiting, intermittent use of antiemetic Foods starting to taste better, oral sores still present slightly less painful than yesterday Still quite weak needing assistance to get up out of bed able to walk once she is on her feet by holding onto her IV pole, has only been as far as her bathroom OBJECTIVE Vitals reviewed: Blood pressure stable, still some tachycardia intermittently, no fevers overnight [employer] 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, my review: Exam: alert oriented HEENT shows diffuse oral ulcerations on lower lip and under surface of tongue, buccal mucosa skin warm dry color ok resps not labored lungs clear BSs heart regular abd soft nondistended nontender, bowel sounds present limbs warm, no edema iv site ok Lab data: Sugars remain in good range CBC currently pending Microbiology: Blood cultures remain negative at this time Objective: Vital Signs Temp Pulse Resp BP Pulse Ox 36.2 C 83 16 100/60 100 06/24/18 07:32 06/24/18 07:32 06/24/18 07:32 06/24/18 07:32 06/24/18 07:32 Laboratory Results 06/23/18 05:40 06/23/18 06/24/18 06/25/18 06:59 06:59 06:59 Intake Total 1725 2205 Output Total 901 100 Balance 824 2105 PT 15.9 SEC (12.0-15.0) H 06/20/18 17:23 INR 1.25 (0.83-1.16) H 06/20/18 17:23 ICD10 Worksheet Patient Problems: Problems Problem Status Onset Anemia due to chemotherapy Acute Diarrhea Acute Neutropenia, drug-induced Acute ~06/20/18 Thrombocytopenia due to drugs Acute ~06/20/18 Uterine sarcoma Chronic ~02/18/18
[2018-06-24 09:22] LABS: PLATELET COUNT 59 10^3/uL (150-400)
[2018-06-24] MEDS: valACYclovir 500 MG TAB PO SCH ×2 (09:38→20:20)
[2018-06-24] MEDS: POTASSIUM CL 10 MEQ TAB PO SCH ×2 (09:38→20:20)
[2018-06-24] MEDS: INSULIN REGULAR HUMAN 100 UNIT/ML UNIT SC SCH ×3 (09:47→18:48)
--- NOTE | 2018-06-24 10:13 | PCMIDPN ---
Assessment/Plan: Assessment: Neutropenic enterocolitis-patient is now no longer neutropenic. She continues to make a good clinical recovery. She has regained an appetite. Patient remains weak with ambulation and needs help with transfer to [facility]. Currently we have her on cefepime, Flagyl and valacyclovir. The cefepime and Flagyl will cover the neutropenic colitis issues. Options for discharge on oral antibiotic include Augmentin or fluoroquinolones. The Valtrex can continue orally. Plan: 1. Continue both cefepime and Flagyl as currently dosed. 2. Continue Valtrex as currently dosed. 3. Evaluate strength and coordination for potential discharge in the next few days. 4. Provided that she continues to make clinical improvements perhaps she can discharge in the next 1-2 days on oral antibiotics. 06/23/18 09:39 06/24/18 10:10 Subjective: Patient is resting comfortably in her hospital bed. She still has looser stool although it is more formed today than it has been the last couple of days. She denies any fevers or chills. She denies abdominal pain. She is tolerating antibiotics without issue. Objective: Cefepime # 4 Flagyl # 2 Valacyclovir # 4 Vital Signs Temp Pulse Resp BP Pulse Ox 36.2 C 83 16 100/60 100 06/24/18 07:32 06/24/18 07:32 06/24/18 07:32 06/24/18 07:32 06/24/18 07:32 Laboratory Results 06/24/18 06:00 06/23/18 05:40 06/23/18 06/24/18 06/25/18 05:59 05:59 05:59 Intake Total 7889 560 0131 Output Total 901 100 Balance 687 692 6290 - Physical Exam General Appearance: WD/WN, alert, no apparent distress, non-toxic Respiratory: lungs clear, normal breath sounds, No respiratory distress Cardiac/Chest: regular rate, rhythm, No tachycardia Abdomen: non-tender, soft, No mass Skin: normal color, warm/dry, No rash Neuro/Psych: alert, normal mood/affect, oriented x 3 ICD10 Worksheet Patient Problems: Problems Problem Status Onset Anemia due to chemotherapy Acute Diarrhea Acute Neutropenia, drug-induced Acute ~06/20/18 Thrombocytopenia due to drugs Acute ~06/20/18 Uterine sarcoma Chronic ~02/18/18
--- NOTE | 2018-06-24 10:17 | SOAPPROG ---
SOAP Progress Note Assessment/Plan: Assessment: 1. Uterine sarcoma 2. Neutropenic colitis Plan: - d/c zarxio as WBC 7.5 - continue abx per ID - will likely continue Rx with olaratumumab alone as outpatient d/w dr philippe and dr merida 25 min spent w/ pt and in coordination of care. 06/24/18 10:15 Subjective: feeling somewhat better today. less oral pain. diarrhea mostly resolved. Objective: exam; chronically ill, NAD musocitis Lungs CTAB CV RRR no MGR Abd: +BS NT ND Ext: 2+ edema Neuro: a+ox3 Vital Signs Temp Pulse Resp BP Pulse Ox 36.2 C 83 16 100/60 100 06/24/18 07:32 06/24/18 07:32 06/24/18 07:32 06/24/18 07:32 06/24/18 07:32 Laboratory Results 06/24/18 06:00 06/23/18 05:40 06/23/18 06/24/18 06/25/18 05:59 05:59 05:59 Intake Total 9432 222 5707 Output Total 901 100 Balance 789 513 2006 PT 15.9 SEC (12.0-15.0) H 06/20/18 17:23 INR 1.25 (0.83-1.16) H 06/20/18 17:23 ICD10 Worksheet Patient Problems: Problems Problem Status Onset Anemia due to chemotherapy Acute Diarrhea Acute Neutropenia, drug-induced Acute ~06/20/18 Thrombocytopenia due to drugs Acute ~06/20/18 Uterine sarcoma Chronic ~02/18/18
[2018-06-25] MEDS: CEFEPIME HCL 2 GM in NS 100 ML IV SCH ×3 (03:02→20:36)
[2018-06-25 03:09] LABS: PLATELET COUNT 87 10^3/uL (150-400)
[2018-06-25] MEDS: INSULIN REGULAR HUMAN 100 UNIT/ML UNIT SC SCH ×3 (09:54→18:03)
[2018-06-25] MEDS: valACYclovir 500 MG TAB PO SCH ×2 (10:04→20:36)
[2018-06-25] MEDS: POTASSIUM CL 10 MEQ TAB PO SCH ×2 (10:04→20:36)
--- NOTE | 2018-06-25 11:03 | SOAPPROG ---
ELIZA Progress Note Assessment/Plan: Assessment: * Profound neutropenia now resolved * Thrombocytopenia - no transfusion needed today * Colitis on CT: Infectious vs. underlying ulcerative colitis. Her abdomen is soft today. Bowel movements now formed per nurse. * Severe pancytopenia due to chemotherapy: No need for transfusions today. 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 Dr. Stokes not going forward with further doxorubicin after this cycle because she was at or near her lifetime recommended dose. Plan: - Abx per ID - Work to mobilize patient - Doxorubicin to be dropped out of regimen, Olara to continue. OK for d/c from [facility] when ready from medical/ID standpoint. Subjective: Feeling stronger. Having more normal BMs. Mouth sores improved. Objective: Vital Signs Temp Pulse Resp BP Pulse Ox 36.4 C 91 16 122/72 H 99 06/25/18 08:15 06/25/18 08:15 06/25/18 08:15 06/25/18 08:15 06/25/18 08:15 Laboratory Results 06/25/18 03:00 06/23/18 05:40 06/23/18 06/24/18 06/25/18 23:59 23:59 23:59 Intake Total 2025 2905 1285 Output Total 100 Balance 1925 2905 1285 PT 15.9 SEC (12.0-15.0) H 06/20/18 17:23 INR 1.25 (0.83-1.16) H 06/20/18 17:23 Physical Exam - Physical Exam General Appearance: alert, no apparent distress Respiratory: lungs clear, normal breath sounds, No respiratory distress Cardiac/Chest: regular rate, rhythm Abdomen: normal bowel sounds, non-tender, soft Neuro/Psych: alert, normal mood/affect ICD10 Worksheet Patient Problems: Problems Problem Status Onset Anemia due to chemotherapy Acute Diarrhea Acute Neutropenia, drug-induced Acute ~06/20/18 Thrombocytopenia due to drugs Acute ~06/20/18 Uterine sarcoma Chronic ~02/18/18
--- NOTE | 2018-06-25 15:16 | PCMIDPN ---
Assessment/Plan: Assessment/Plan: * Neutropenic fever/enterocolitis: Fever resolve with resolution of neutropenia. Continue cefepime and Flagyl with plans to transition to Augmentin and ciprofloxacin or levofloxacin at time of discharge or as inpatient tomorrow if anticipated longer stay for continued strengthening. Plan to complete 10 total days of therapy. Recovery of ANC primary factor allowing for recovery. Diarrhea now also improving. * Acute renal insufficiency: Resolved. * Diarrhea: Likely related to neutropenic enterocolitis versus element from ongoing chemotherapy. See above discussion. * Oral ulcerations: Patient with history of oral HSV. Improved with Valtrex. 06/25/18 15:13 Subjective: Patient feels significantly improved. Notes 3 loose stools but no ongoing diarrhea. No abdominal pain. Objective: Vital Signs Temp Pulse Resp BP Pulse Ox 36.3 C 95 16 120/58 L 100 06/25/18 11:30 06/25/18 11:30 06/25/18 11:30 06/25/18 11:30 06/25/18 11:30 Laboratory Results 06/25/18 03:00 06/23/18 05:40 06/24/18 06/25/18 06/26/18 05:59 05:59 05:59 Intake Total 600 3890 Output Total 100 Balance 500 3890 Cefepime # 5 Metronidazole # 3 Valtrex # 5 - Physical Exam General Appearance: alert, no apparent distress EENT: No scleral icterus, No thrush, No conjunctival petechiae Respiratory: lungs clear, No respiratory distress Cardiac/Chest: regular rate, rhythm Extremities: pedal edema Abdomen: non-tender, No distended Skin: No rash ICD10 Worksheet Patient Problems: Problems Problem Status Onset Anemia due to chemotherapy Acute Diarrhea Acute Neutropenia, drug-induced Acute ~06/20/18 Thrombocytopenia due to drugs Acute ~06/20/18 Uterine sarcoma Chronic ~02/18/18
--- NOTE | 2018-06-25 15:19 | ASMTCMCOM ---
CM Note CM Note Notes: Chart reviewed for discharge planning, 68 year old female admitted with weakness, dehydration and electrolyte imbalance as a result of chemotherapy for uterine cancer. Per therapy, [facility] recommended. I spoke to patient who states she has no preference. Referral in allscripts. CM to follow. Plan: Home with [facility] when medically cleared for discharge to home. Date Signed: 06/25/2018 03:18 PM Electronically Signed By:Lea Washington RN
[2018-06-25] MEDS ORDERED: FUROSEMIDE 40 MG/4 ML VIAL IVP ONE (16:56)
[2018-06-25] MEDS ORDERED: DIPHENOXYLATE/ATROPINE LOMOTIL 1 TAB PO PRN (16:56)
--- NOTE | 2018-06-25 17:13 | HOSPPROG ---
Hospitalist Progress Note Assessment/Plan: DIAGNOSES: * neutropenic fever * CT scan findings raise question of possible neutropenic colitis * acute sepsis with hypotension and lactic acidosis * pancytopenia from cancer and chemotherapy * acute hyponatremia and hypokalemia, multifactorial with GI fluid losses contributing * acute on chronic right-sided heart failure, new onset and worsening today * chemotherapy related diarrhea * bilateral leg edema, volume overload * oral ulcerations with prior history of HSV, suspect both acute HSV and drug- induced stomatitis * severe deconditioning weakness, acute gait instability related to that with chronic gait instability using walker at home * metastatic uterine sarcoma * type 2 diabetes mellitus: Sugars remain in good range * history of inflammatory bowel disease * chronic hypoxemic respiratory failure, 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 She had an echocardiogram not long ago showing excellent ejection fraction, LV function, RV function and left heart valves, however she did have pulmonary hypertension and pulmonic valve regurgitation. I suspect that she does have some right-sided congestive heart failure that we have aggravated with our IV fluids here for her diarrhea and dehydration. PLANS: * Stop IV fluids and will give some Lasix * Reassess for right heart failure symptoms tomorrow * Continue empiric antibiotics including bowel varun coverage * Follow blood cell counts closely (today's CBC currently pending) * Follow sugars closely * Continue electrolyte replacement as needed * Continue Valtrex * Mouth rinses for oral ulcers * Physical occupational therapy for strength and mobility balance issues * DVT prophylaxis is mechanical only due to thrombocytopenia at this time I reviewed care plan in detail today with Dr. 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: Exam: alert oriented HEENT shows diffuse oral ulcerations on lower lip and under surface of tongue, buccal mucosa skin warm dry color ok resps not labored lungs clear BSs heart regular abd soft nondistended nontender, bowel sounds present limbs warm, significant ankle edema bilaterally iv site ok Lab data: Sugars remain in good range Red count, platelets, and white counts all improving nicely Microbiology: Blood cultures remain negative at this time Objective: Vital Signs Temp Pulse Resp BP Pulse Ox 36.3 C 87 16 128/60 H 100 06/25/18 15:41 06/25/18 15:41 06/25/18 15:41 06/25/18 15:41 06/25/18 15:41 Laboratory Results 06/25/18 03:00 06/23/18 05:40 06/24/18 06/25/18 06/26/18 06:59 06:59 06:59 Intake Total 2205 2285 Output Total 100 Balance 2105 2285 PT 15.9 SEC (12.0-15.0) H 06/20/18 17:23 INR 1.25 (0.83-1.16) H 06/20/18 17:23 - Time Spent With Patient Time Spent with Patient: greater than 35 minutes Time Spent with Patient: Greater than 35 minutes spent on this patients care, greater than 50% of time spent counseling, educating, and coordinating care regarding the above mentioned plan. ICD10 Worksheet Patient Problems: Problems Problem Status Onset Anemia due to chemotherapy Acute Diarrhea Acute Neutropenia, drug-induced Acute ~06/20/18 Thrombocytopenia due to drugs Acute ~06/20/18 Uterine sarcoma Chronic ~02/18/18
[2018-06-26] MEDS: CEFEPIME HCL 2 GM in NS 100 ML IV SCH ×2 (04:34→13:00)
[2018-06-26 08:14] LABS: PLATELET COUNT 111 10^3/uL (150-400)
[2018-06-26] MEDS: INSULIN REGULAR HUMAN 100 UNIT/ML UNIT SC SCH ×2 (08:34→12:59)
[2018-06-26] MEDS ORDERED: FUROSEMIDE 20 MG/2 ML VIAL IVP ONE (09:43)
[2018-06-26] MEDS: valACYclovir 500 MG TAB PO SCH (10:23)
[2018-06-26] MEDS: POTASSIUM CL 10 MEQ TAB PO SCH (10:23)
--- NOTE | 2018-06-26 12:44 | SOAPPROG ---
ELIZA Progress Note Assessment/Plan: Assessment: * Profound neutropenia now resolved * Colitis on CT: Infectious vs. underlying ulcerative colitis. Her abdomen is soft today. Bowel movements now formed per nurse. * Severe pancytopenia due to chemotherapy: No need for transfusions today. * Metastatic uterine sarcoma: She is day 16 of cycle 5 of doxorubicin plus Olaratumab. Dr. Stokes not going forward with further doxorubicin after this cycle because she was at or near her lifetime recommended dose. Plan: - Abx per ID - Work to mobilize patient - Doxorubicin to be dropped out of regimen, Olara to continue. OK for d/c from [facility] when ready from medical/ID standpoint. I'll sign off for now. She should see Dr. Stokes within the week as an outpatient for additional treatment planning. Subjective: No complaints. Wants to go home. Objective: Vital Signs Temp Pulse Resp BP Pulse Ox 36.3 C 100 16 110/64 98 06/26/18 11:46 06/26/18 11:46 06/26/18 11:46 06/26/18 11:46 06/26/18 11:46 Microbiology 06/20/18 17:20 Blood Culture - Final Blood 06/20/18 13:46 Blood Culture - Final Blood Laboratory Results 06/26/18 08:05 06/26/18 08:05 06/24/18 06/25/18 06/26/18 23:59 23:59 23:59 Intake Total 2905 2835 650 Output Total 2050 700 Balance 2905 785 -50 PT 15.9 SEC (12.0-15.0) H 06/20/18 17:23 INR 1.25 (0.83-1.16) H 06/20/18 17:23 Physical Exam - Physical Exam General Appearance: alert, no apparent distress Respiratory: lungs clear, No crackles, No rales, No rhonchi Cardiac/Chest: regular rate, rhythm, edema (bilateral LE. 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
--- NOTE | 2018-06-26 13:03 | PDIAF ---
- Diagnosis Diagnosis: neutropenic fever (neutropenia resolved); deconditioning; gait instability Code Status: Full Code - Medication Management Discharge Medications: electronically signed and located in the Home Medication List. - Orders Services needed: Home Care, Physical Therapy, Occupational Therapy Home Care Face to Face: I certify that this patient was under my care and that I had the required [id number] encounter meeting the encounter requirements on the discharge day. My findings support the fact that the patient is homebound as defined in Home Care Face to Face Continued: CMS Chapter 7 Medicare Benefits Manual 30.1.1 , The condition of the patient is such that there exists a normal inability to leave home and consequently, leaving home would require a considerable and taxing effort. Isolation Type: None Diet Recommendation: no restrictions on diet Diet Texture: Regular Texture Diet Additional Instructions: Follow up in oncology clinic with Dr Stokes next week - Follow Up Care Current Providers and Referrals: Frieda Sidhu, [Primary Care Provider] -
--- NOTE | 2018-06-26 13:07 | PDDCSUM ---
Discharge Summary Discharge Summary: DISCHARGE DIAGNOSES: * neutropenic fever * suspect neutropenic colitis * acute sepsis * hyponatremia and hypokalemia caused by GI losses * acute on chronic right-sided CHF * chemotherapy related diarrhea * chemotherapy-induced oral stomatitis * type 2 diabetes mellitus * severe generalized weakness, deconditioning, gait instability * chemotherapy induced pancytopenia * chronic hypoxemic respiratory failure * metastatic uterine sarcoma CONSULTANTS: Dr. Hernando Bolanos PROCEDURES: CT scan of abdomen and pelvis sounding changes suggestive of possible neutropenic colitis HOSPITAL COURSE SUMMARY: This patient who has known metastatic uterine sarcoma, has been receiving chemotherapy with doxorubicin and olaratumab. She presented to the hospital this time with severe diarrhea nausea vomiting, oral ulcers, and severe weakness. She was hypotensive. There is chemotherapy-induced stomatitis orally , and there was suspicion for possible concomitant herpes as she has had that before. She had pancytopenia. The diarrhea was nonbloody and without fever but a CT scan showed evidence of possible neutropenic colitis. She was started on IV fluids, antiviral for HSV, oral topical medicines, and antibiotics for covering bowel varun for probable neutropenic colitis. Her course was slow but at this time she has recovered nicely. Her white counts of come back in the good range. She has resolved most of the oral ulcerations and is feeling much better there eating and drinking well. Her diarrhea has slowed down quite considerably and stools are now formed. She is not having abdominal pain and there was never any evidence of peritonitis. Her weakness has improved significantly as well. There was hyponatremia and hypokalemia from GI losses in these have been replaced. Diabetes has remained in reasonably good range throughout. At this point she is felt stable for discharge to home. She will follow up with [facility] next week with Dr. Stokes, and reconsider what her therapy should be consisting of moving forward for her cancer. She will be on several more days of antibiotics for the neutropenic fever neutropenic colitis, and she will be on several more days of valacyclovir for possible herpetic oral ulcers. Because of some persisting weakness will set up some home care for her as well. PENDING TEST RESULTS: None MEDICATION CHANGES: Addition of Augmentin 875 mg twice daily 5 more days Addition of Cipro 5 mg twice daily 5 more days FOLLOW-UP PLAN: With Dr. Beau hunter in Oncology Clinic next week Greater than 35 minutes bedside and care coordination time today
--- NOTE | 2018-06-26 14:37 | ASMTCMCOM ---
CM Note CM Note Notes: Met with pt and Palliative Care team. Pt reports she is linked with [facility] for palliative care, CM left message with [facility]. Reports her is supportive and she wants to go home. Pt denied any additional concerns. CM to follow. Plan: Home with [facility]. Date Signed: 06/26/2018 02:36 PM Electronically Signed By:PORFIRIO Zhao
[2018-06-26 14:54] VITALS: BP 108/62
--- NOTE | 2018-06-28 10:13 | ASDISCHSUM ---
Discharge Information Plan Status:Home with Home Health Medically Cleared to Leave: Discharge Date:06/26/2018 06:28 PM CM D/C Disposition: ADT D/C Disposition:Home Health Service Projected Discharge Date:06/26/2018 11:00 AM Transportation at D/C: Discharge Delay Reason: Follow-Up Date:06/26/2018 11:00 AM Discharge Slot: Final Diagnosis: Placement Information Referral Type:*Home Health Care Services Referral ID:[id number] Provider Name:[facility] ([facility]) Address 1:[address] [address] Address 2: City:[place] Selection Factors: State:[place] Referral Type:Palliative Care Referral ID:[id number] Provider Name:[facility] ([facility] Address 1:[address] Address 2: City:[place] Selection Factors: State:[place] Patient Contact Information Contact Name:DECLAN Relationship: Address:[address] Work Phone: City:[place] Alternate Phone: [facility]/Zip Code:[place] [address] Email: Financial Information Financial Class:Medicare Advantage Plans Primary Plan Desc:[id number] Primary Plan Number:[id number] Secondary Plan Desc: Secondary Plan Number: Assessment Information LACE LACE Length of stay for Answers: 4-6 days current admission Acuity / Level of Answers: Yes Care: Did the patient have an inpatient admission? Comorbidities - select Answers: Any tumor (including all that apply lymphoma or leukemia) Chronic pulmonary disease Diabetes (uncontrolled or controlled) Other Notes: HTN, IBS # of Emergency department Answers: 0 visits in the last 6 months Score: 13 Date Signed: 06/28/2018 10:12 AM Electronically Signed By:PORFIRIO Zhao BC CM Progress Note CM Note CM Note Notes: Spoke with RN and reviewed chart. Pt admitted for dehydration, diarrhea, electrolyte imbalance and weakness in the setting of chemotherapy for uterine sarcoma. Pt lives independently in mobile home with and has supportive family. Pt to receive a unit of blood today. OT has been ordered and not yet evaluated. Discharge needs TBD. CM to follow. D/C Plan: TBD Date Signed: 06/21/2018 04:22 PM Electronically Signed By:Ashlyn Marsh [facility] CM Progress Note CM Note CM Note Notes: Patient transferred to [facility], neutropenic precautions. CM to follow. Date Signed: 06/22/2018 04:18 PM Electronically Signed By:Charissa Wilson [facility] CM Progress Note CM Note CM Note Notes: Chart reviewed for discharge planning, 68 year old female admitted with weakness, dehydration and electrolyte imbalance as a result of chemotherapy for uterine cancer. Per therapy, [facility] recommended. I spoke to patient who states she has no preference. Referral in allscripts. CM to follow. Plan: Home with [facility] when medically cleared for discharge to home. Date Signed: 06/25/2018 03:18 PM Electronically Signed By:Lea Washington RN [facility] Progress Note CM Note CM Note Notes: Met with pt and Palliative Care team. Pt reports she is linked with [facility] for palliative care, CM left message with [facility]. Reports her is supportive and she wants to go home. Pt denied any additional concerns. CM to follow. [facility]. Date Signed: 06/26/2018 02:36 PM Electronically Signed By:PORFIRIO Zhao Intervention Information
== END 2018-06-26 18:28 | disposition home health service (06) | DRG 871 ==
LOC: F3E 15:11 → OBSVTOIN 06-21 00:38 → F1N 06-22 15:04
PROVIDERS: ADMIT Student in an Organized Health Care Education/Training Program; ATTEND Student in an Organized Health Care Education/Training Program
PROC: 30233N1 Transfusion of Nonautologous Red Blood Cells into Peripheral Vein, Percutaneous Approach (ICD-10-PCS; principal; 2018-06-21)
DX: A41.9 Sepsis, unspecified organism (principal); D61.810 Antineoplastic chemotherapy induced pancytopenia; J96.11 Chronic respiratory failure with hypoxia; C49.5 Malignant neoplasm of connective and soft tissue of pelvis; E87.1 Hypo-osmolality and hyponatremia; K52.1 Toxic gastroenteritis and colitis; T45.1X5A Adverse effect of antineoplastic and immunosuppressive drugs, initial encounter; D70.9 Neutropenia, unspecified; E87.6 Hypokalemia; K12.1 Other forms of stomatitis; I11.0 Hypertensive heart disease with heart failure; I50.813 Acute on chronic right heart failure; E11.9 Type 2 diabetes mellitus without complications; Z79.84 Long term (current) use of oral hypoglycemic drugs; Z99.81 Dependence on supplemental oxygen
CPT/HCPCS: 97116-GP; 97161-GP; 97165-GO; 97535-GO; G0378; G8978-GP-CI; G8979-GP-CI; G8987-GO-CL; G8988-GO-CI; J0692; J1642; J1815; J1940; J2405; J3370; J3475; J3480; P9016; Q5101; Q9967